=== PATIENT | male | born 1995 | race Native Hawaiian/Other Pacific Islander ===

== ENCOUNTER 2020-03-18 08:36 | Outpatient (CLI) | payer OTHER ==
[2020-03-18 09:01] LABS: PLATELET COUNT 272 K/uL (142-355)
== END 2020-03-18 19:43 | disposition home or self-care (01) ==
LOC: RAD 08:36
PROVIDERS: ATTEND Internal Medicine
DX: R59.0 Localized enlarged lymph nodes (principal)
CPT/HCPCS: 36415; 85027; 85651